=== PATIENT | male | born 1950 | race Caucasian/White ===

== ENCOUNTER 2022-09-12 12:46 | Inpatient (IN) | payer OTHER ==
[2022-09-12 13:11] VITALS: BMI 27.1
[2022-09-12] MEDS ORDERED: ONDANSETRON *ODT* 4 MG TABLET SL PRN (13:54)
[2022-09-12] MEDS ORDERED: BENZOCAINE/MENTHOL (CHLORASEPTIC ) LOZENGE MM PRN (13:54)
[2022-09-12] MEDS ORDERED: guaiFENesin 600 MG TABLET.ER (FP) PO PRN (13:54)
[2022-09-12] MEDS ORDERED: IBUPROFEN 600 MG TABLET (FP) PO PRN (13:54)
[2022-09-12] MEDS ORDERED: P-EPHED 60MG/TRIPROLIDI 2.5MG TABLET PO PRN (13:54)
[2022-09-12] MEDS ORDERED: POLYETHYLENE GLYCOL (HEALTHYLAX) 3350 17 GM PACKET PO PRN (13:54)
[2022-09-12] MEDS ORDERED: BISMUTH SUBSALICYLATE 262 MG/15 ML BTL PO PRN (13:54)
[2022-09-12] MEDS ORDERED: DICYCLOMINE HCL 10 MG CAPSULE PO PRN (13:54)
[2022-09-12] MEDS ORDERED: MAG HYDROX/AL HYDROX/SIMETH 30 ML UNIT-DOSE CUP PO PRN (13:54)
[2022-09-12] MEDS ORDERED: hydrOXYzine PAMOATE 25 MG CAPSULE (FP) PO PRN (13:54)
[2022-09-12] MEDS ORDERED: NALOXONE HCL 0.4 MG/ML VIAL IM PRN (13:54)
[2022-09-12] MEDS ORDERED: LOPERAMIDE HCL 2 MG CAPSULE PO PRN (13:54)
[2022-09-12] MEDS ORDERED: IBUPROFEN 400 MG TABLET (FP) PO PRN (13:54)
[2022-09-12] MEDS ORDERED: BENZONATATE 200 MG CAPSULE PO PRN (13:54)
[2022-09-12] MEDS ORDERED: NALOXONE HCL (KLOXXADO) 8 MG SPRAY NS PRN (13:54)
[2022-09-12] MEDS ORDERED: ACETAMINOPHEN 325 MG TABLET (FP) PO PRN ×2 (13:54→15:11)
[2022-09-12] MEDS ORDERED: MAGNESIUM HYDROX 2400MG/30ML ORAL SUSPENSION 30 ML CUP PO PRN (13:54)
[2022-09-12] MEDS: INSULIN SLIDING SCALE (NOVOLOG) 1 VIAL SQ SCH ×3 (15:52→22:03)
[2022-09-12] MEDS: LISINOPRIL 5 MG TABLET PO SCH (16:05)
[2022-09-12] MEDS: CHOLECALCIFEROL (VIT D3) 1,000 UNIT (25 MCG) TABLET PO SCH (16:05)
[2022-09-12] MEDS: GEMFIBROZIL 600 MG TABLET (FP) PO SCH (17:25)
[2022-09-12] MEDS: MELATONIN 5 MG TABLETS PO PRN (22:23)
[2022-09-12] MEDS: INSULIN (LEVEMIR) 100 UNITS/ML UNITS SQ SCH (22:23)
[2022-09-12] MEDS: THIAMINE HCL 100 MG TABLET (FP) PO SCH (22:24)
[2022-09-13] MEDS: INSULIN SLIDING SCALE (NOVOLOG) 1 VIAL SQ SCH ×4 (06:28→21:51)
[2022-09-13] MEDS: GEMFIBROZIL 600 MG TABLET (FP) PO SCH ×2 (06:28→17:32)
[2022-09-13 09:23] LABS: HEMATOCRIT 40.2 % (35.4-49); HEMOGLOBIN 14.2 GM/dL (11.7-16.9); MCH 32.8 pg (25.7-33.7); MCHC 35.4 g/dl (32.0-35.9); MEAN CELL VOLUME 92.5 fl (80-96); MEAN PLT VOLUME 7.4 fl (7.5-11.1); PLATELET COUNT 258 10^3/uL (134-434); RBC 4.35 M/mm3 (4.00-5.60); RDW 14.1 % (11.9-15.9); WHITE BLOOD COUNT 5.7 K/mm3 (4.0-10.0)
[2022-09-13] MEDS: LISINOPRIL 5 MG TABLET PO SCH (09:54)
[2022-09-13] MEDS: PRENATAL VITAMINS W/ FOLIC ACID TABLET (FP) PO SCH (09:54)
[2022-09-13] MEDS: CHOLECALCIFEROL (VIT D3) 1,000 UNIT (25 MCG) TABLET PO SCH (09:54)
[2022-09-13 10:43] LABS: ALBUMIN 3.4 g/dl (3.4-5.0); CALCIUM 9.2 mg/dL (8.5-10.1)
[2022-09-13 10:44] LABS: BLOOD UREA NITROGEN 17.6 mg/dL (7-18)
[2022-09-13 10:46] LABS: CREATININE 0.8 mg/dL (0.55-1.3)
[2022-09-13 10:48] LABS: TOT PROT 6.8 g/dl (6.4-8.2)
[2022-09-13] MEDS: INSULIN (LEVEMIR) 100 UNITS/ML UNITS SQ SCH (21:52)
[2022-09-13] MEDS: THIAMINE HCL 100 MG TABLET (FP) PO SCH (21:54)
[2022-09-13] MEDS: MELATONIN 5 MG TABLETS PO PRN (21:54)
[2022-09-14] MEDS: GEMFIBROZIL 600 MG TABLET (FP) PO SCH (06:10)
[2022-09-14] MEDS: INSULIN SLIDING SCALE (NOVOLOG) 1 VIAL SQ SCH ×2 (06:11→10:46)
[2022-09-14 06:27] VITALS: BP 151/76; PULSE 57; RESP 16; TEMP 97.7
[2022-09-14] MEDS: PRENATAL VITAMINS W/ FOLIC ACID TABLET (FP) PO SCH (10:46)
[2022-09-14] MEDS: LISINOPRIL 5 MG TABLET PO SCH (10:46)
[2022-09-14] MEDS: CHOLECALCIFEROL (VIT D3) 1,000 UNIT (25 MCG) TABLET PO SCH (10:46)
[2022-09-14] MEDS ORDERED: ATORVASTATIN CA 10 MG TABLET (FP) PO SCH (22:00)
== END 2022-09-14 09:14 | disposition home or self-care (01) | DRG 897 ==
LOC: YASAS 12:46 → Y3N 15:55
PROVIDERS: ADMIT Allergy & Immunology; ATTEND Surgery
PROC: HZ2ZZZZ Detoxification Services for Substance Abuse Treatment (ICD-10-PCS; principal; 2022-09-12)
DX: F10.20 Alcohol dependence, uncomplicated (principal); F10.220 Alcohol dependence with intoxication, uncomplicated; I10 Essential (primary) hypertension; E78.5 Hyperlipidemia, unspecified; E11.9 Type 2 diabetes mellitus without complications; Z79.4 Long term (current) use of insulin; R74.01 Elevation of levels of liver transaminase levels; Z85.51 Personal history of malignant neoplasm of bladder
CPT/HCPCS: 36415; 80053; 82962; 85027; 86780; 87635; 87811

== ENCOUNTER 2022-09-30 18:49 | Emergency (ER) | payer OTHER ==
[2022-09-30 18:58] VITALS: BP 148/85; PULSE 75; RESP 16; TEMP 98; BMI 25.0
[2022-09-30 21:42] LABS: BASO % 1.3 % (0-2.0); EOS % 0.5 % (0-4.5); HEMATOCRIT 44.1 % (35.4-49); HEMOGLOBIN 14.9 GM/dL (11.7-16.9); LYMPH % 36.3 % (8-40); MCH 32.3 pg (25.7-33.7); MCHC 33.8 g/dl (32.0-35.9); MEAN CELL VOLUME 95.5 fl (80-96); MEAN PLT VOLUME 6.8 fl (7.5-11.1); MONO % 5.3 % (3.8-10.2); NEUT % 56.6 % (42.8-82.8); PLATELET COUNT 349 10^3/uL (134-434); RBC 4.62 M/mm3 (4.00-5.60); RDW 14.4 % (11.9-15.9); WHITE BLOOD COUNT 4.9 K/mm3 (4.0-10.0)
[2022-09-30 22:00] LABS: POTASSIUM 3.8 mmol/L (3.5-5.1)
[2022-09-30 22:02] LABS: CALCIUM 8.5 mg/dL (8.5-10.1)
[2022-09-30 22:03] LABS: ALBUMIN 3.8 g/dl (3.4-5.0); BLOOD UREA NITROGEN 10.7 mg/dL (7-18)
[2022-09-30 22:06] LABS: CREATININE 0.7 mg/dL (0.55-1.3)
[2022-09-30 22:07] LABS: BILIRUBIN,TOTAL 0.3 mg/dL (0.2-1); TOT PROT 7.4 g/dl (6.4-8.2)
== END 2022-09-30 22:46 | disposition home or self-care (01) ==
LOC: JER 18:49
DX: F10.288 Alcohol dependence with other alcohol-induced disorder (principal); Y90.9 Presence of alcohol in blood, level not specified
CPT/HCPCS: 36415; 70450-TC; 72125-TC; 80053; 84484; 85025; 93005; 93010; 99285-25

== ENCOUNTER 2022-09-30 23:36 | Inpatient (IN) | payer OTHER ==
[2022-10-01 00:53] VITALS: BMI 27.4
[2022-10-01] MEDS ORDERED: NALOXONE HCL 0.4 MG/ML VIAL IM PRN (01:46)
[2022-10-01] MEDS ORDERED: ACETAMINOPHEN 325 MG TABLET (FP) PO PRN (01:46)
[2022-10-01] MEDS ORDERED: METHOCARBAMOL 500 MG TABLET PO PRN (01:46)
[2022-10-01] MEDS ORDERED: MAG HYDROX/AL HYDROX/SIMETH 30 ML UNIT-DOSE CUP PO PRN (01:46)
[2022-10-01] MEDS ORDERED: DICYCLOMINE HCL 10 MG CAPSULE PO PRN (01:46)
[2022-10-01] MEDS ORDERED: POLYETHYLENE GLYCOL (HEALTHYLAX) 3350 17 GM PACKET PO PRN (01:46)
[2022-10-01] MEDS ORDERED: NALOXONE HCL (KLOXXADO) 8 MG SPRAY NS PRN (01:46)
[2022-10-01] MEDS ORDERED: IBUPROFEN 600 MG TABLET (FP) PO PRN (01:46)
[2022-10-01] MEDS ORDERED: MAGNESIUM HYDROX 2400MG/30ML ORAL SUSPENSION 30 ML CUP PO PRN (01:46)
[2022-10-01] MEDS ORDERED: LOPERAMIDE HCL 2 MG CAPSULE PO PRN (01:46)
[2022-10-01] MEDS ORDERED: BENZOCAINE/MENTHOL (CHLORASEPTIC ) LOZENGE MM PRN (01:46)
[2022-10-01] MEDS ORDERED: guaiFENesin 600 MG TABLET.ER (FP) PO PRN (01:46)
[2022-10-01] MEDS ORDERED: BISMUTH SUBSALICYLATE 524 MG/30 ML PO PRN (01:46)
[2022-10-01] MEDS ORDERED: ONDANSETRON *ODT* 4 MG TABLET SL PRN (01:46)
[2022-10-01] MEDS ORDERED: BENZONATATE 200 MG CAPSULE PO PRN (01:46)
[2022-10-01] MEDS ORDERED: IBUPROFEN 400 MG TABLET (FP) PO PRN (01:46)
[2022-10-01] MEDS: INSULIN SLIDING SCALE (NOVOLOG) 1 VIAL SQ SCH ×4 (06:44→21:21)
[2022-10-01] MEDS ORDERED: chlordiazePOXIDE HCL 25 MG CAPSULE PO PRN (09:38)
[2022-10-01] MEDS: LISINOPRIL 5 MG TABLET PO SCH (10:30)
[2022-10-01] MEDS: GEMFIBROZIL 600 MG TABLET (FP) PO SCH ×3 (10:30→17:30)
[2022-10-01] MEDS: CHOLECALCIFEROL (VIT D3) 1,000 UNIT (25 MCG) TABLET PO SCH ×2 (10:30→10:42)
[2022-10-01] MEDS: PRENATAL VITAMINS W/ FOLIC ACID TABLET (FP) PO SCH (10:30)
[2022-10-01] MEDS: chlordiazePOXIDE HCL 25 MG CAPSULE PO SCH ×3 (10:31→22:20)
[2022-10-01] MEDS ORDERED: cloNIDine HCL 0.1 MG TABLET PO ONE (17:42)
[2022-10-01] MEDS: ATORVASTATIN CA 10 MG TABLET (FP) PO SCH (22:20)
[2022-10-01] MEDS: MELATONIN 5 MG TABLETS PO SCH (22:21)
[2022-10-01] MEDS: THIAMINE HCL 100 MG TABLET (FP) PO SCH (22:21)
[2022-10-02] MEDS: chlordiazePOXIDE HCL 25 MG CAPSULE PO SCH ×4 (05:28→22:03)
[2022-10-02] MEDS: GEMFIBROZIL 600 MG TABLET (FP) PO SCH ×2 (06:18→17:42)
[2022-10-02] MEDS: INSULIN SLIDING SCALE (NOVOLOG) 1 VIAL SQ SCH ×4 (06:19→22:04)
[2022-10-02] MEDS: PRENATAL VITAMINS W/ FOLIC ACID TABLET (FP) PO SCH (10:08)
[2022-10-02] MEDS: CHOLECALCIFEROL (VIT D3) 1,000 UNIT (25 MCG) TABLET PO SCH (10:08)
[2022-10-02] MEDS: LISINOPRIL 5 MG TABLET PO SCH (10:08)
[2022-10-02 11:44] LABS: HEMATOCRIT 41.6 % (35.4-49); HEMOGLOBIN 14.1 GM/dL (11.7-16.9); MCH 32.9 pg (25.7-33.7); MCHC 33.9 g/dl (32.0-35.9); MEAN CELL VOLUME 96.8 fl (80-96); MEAN PLT VOLUME 8.1 fl (7.5-11.1); PLATELET COUNT 318 10^3/uL (134-434); RDW 14.2 % (11.9-15.9)
[2022-10-02 11:46] LABS: POTASSIUM 4.2 mmol/L (3.5-5.1)
[2022-10-02 11:48] LABS: CALCIUM 9.7 mg/dL (8.5-10.1)
[2022-10-02 11:49] LABS: ALBUMIN 3.9 g/dl (3.4-5.0); BLOOD UREA NITROGEN 11.2 mg/dL (7-18)
[2022-10-02 11:53] LABS: BILIRUBIN,TOTAL 0.9 mg/dL (0.2-1); TOT PROT 7.3 g/dl (6.4-8.2)
[2022-10-02] MEDS: THIAMINE HCL 100 MG TABLET (FP) PO SCH (22:03)
[2022-10-02] MEDS: ATORVASTATIN CA 10 MG TABLET (FP) PO SCH (22:03)
[2022-10-02] MEDS: MELATONIN 5 MG TABLETS PO SCH (22:03)
[2022-10-03] MEDS: chlordiazePOXIDE HCL 25 MG CAPSULE PO SCH ×4 (05:32→22:09)
[2022-10-03] MEDS: INSULIN SLIDING SCALE (NOVOLOG) 1 VIAL SQ SCH ×4 (06:50→22:09)
[2022-10-03] MEDS: GEMFIBROZIL 600 MG TABLET (FP) PO SCH ×2 (06:51→17:25)
[2022-10-03] MEDS: CHOLECALCIFEROL (VIT D3) 1,000 UNIT (25 MCG) TABLET PO SCH (09:57)
[2022-10-03] MEDS: LISINOPRIL 5 MG TABLET PO SCH (09:57)
[2022-10-03] MEDS: PRENATAL VITAMINS W/ FOLIC ACID TABLET (FP) PO SCH (09:57)
[2022-10-03] MEDS: ATORVASTATIN CA 10 MG TABLET (FP) PO SCH (22:08)
[2022-10-03] MEDS: THIAMINE HCL 100 MG TABLET (FP) PO SCH (22:08)
[2022-10-03] MEDS: MELATONIN 5 MG TABLETS PO SCH (22:08)
[2022-10-04] MEDS ORDERED: chlordiazePOXIDE HCL 10 MG CAPSULE PO PRN
[2022-10-04] MEDS ORDERED: chlordiazePOXIDE HCL 10 MG CAPSULE PO SCH (05:00)
[2022-10-04] MEDS: INSULIN SLIDING SCALE (NOVOLOG) 1 VIAL SQ SCH (06:06)
[2022-10-04] MEDS: GEMFIBROZIL 600 MG TABLET (FP) PO SCH (06:06)
[2022-10-04 06:27] VITALS: RESP 16; TEMP 97.7
[2022-10-04 09:29] VITALS: BP 136/79; PULSE 88
[2022-10-05] MEDS ORDERED: chlordiazePOXIDE HCL 10 MG CAPSULE PO SCH (05:00)
[2022-10-06] MEDS ORDERED: chlordiazePOXIDE HCL 10 MG CAPSULE PO ONE (05:00)
== END 2022-10-04 10:21 | disposition home or self-care (01) | DRG 897 ==
LOC: YASAS 23:36 → Y3N 10-01 04:10
PROVIDERS: ADMIT Allergy & Immunology; ATTEND Surgery
PROC: HZ2ZZZZ Detoxification Services for Substance Abuse Treatment (ICD-10-PCS; principal; 2022-10-01)
DX: F10.230 Alcohol dependence with withdrawal, uncomplicated (principal); I10 Essential (primary) hypertension; E78.5 Hyperlipidemia, unspecified; E11.9 Type 2 diabetes mellitus without complications; Z79.4 Long term (current) use of insulin; Z85.51 Personal history of malignant neoplasm of bladder; Z96.651 Presence of right artificial knee joint
CPT/HCPCS: 36415; 80053; 82962; 85027; 86780; 87635; 87811; 93005; 93010